=== PATIENT | female | born 1945 | race Caucasian/White ===

== ENCOUNTER 2019-12-10 11:21 | Observation (INO) ==
[2019-12-10 11:56] LABS: INR 1.1
[2019-12-10 11:57] LABS: Basophils % 0.5 %; Hematocrit 37.5 % (35.3-44.9); Hemoglobin 11.5 g/dL (11.5-15.4); Lymphocytes % 12.8 %; Mean Corpuscular HGB Conc 30.7 g/dL (31.6-35.5); Segmented Neutrophils % 75.4 %
[2019-12-10 11:59] LABS: Activated Partial Thrombo Time 32.1 Seconds (26.0-36.0); Basophils # 0.1 K/mcL (0.0-0.2); Eosinophils # 0.4 K/mcL (0.0-0.6); Eosinophils % 2.9 %; Immature Granulocytes % 0.3 % (0-4); Immature Platelets 6.4 % (1.1-6.1); Lymphocytes # 1.7 K/mcL (0.6-4.6); Mean Corpuscular Hemoglobin 29.6 pg (28.0-33.3); Mean Corpuscular Volume 96.6 fL (83.0-100.0); Mean Platelet Volume 10.9 fL (9.4-12.4); Monocytes # 1.1 K/mcL (0.0-1.3); Monocytes % 8.1 %; Platelet Count 378 K/mcL (140-400); Red Blood Count 3.88 M/mcL (3.82-4.97); Red Cell Distribution Width 13.7 % (11.5-14.5); White Blood Count 13.2 K/mcL (4.3-11.1)
[2019-12-10] MEDS ORDERED: Furosemide 40 MG/4 ML VIAL IVP ONE (14:17)
[2019-12-10 15:03] LABS: BUN/Creatinine Ratio 14 (6-26); Blood Urea Nitrogen 18 mg/dL (8-23); Calcium 9.7 mg/dL (8.6-10.3); Carbon Dioxide 23 mEq/L (23-29); Chloride 103 mEq/L (98-107); Glucose 130 mg/dL (70-105); Lipase 40 Units/L (11-82); Magnesium 1.8 mg/dL (1.6-2.6); Osmolality,Calculated 290 (280-300); Potassium 4.6 mEq/L (3.5-5.1); Sodium 138 mEq/L (136-145); Thyroid Stimulating Hormone 1.418 mcIU/mL (0.340-5.600); Troponin I < 0.03 ng/mL (< 0.04); eGFR For African Americans 50 (> 60); eGFR For Non-African Americans 42 (> 60)
[2019-12-10] MEDS ORDERED: Naloxone 0.4 MG/ML INJ IVP PRN (15:18)
[2019-12-10] MEDS ORDERED: Ondansetron 4 MG/2 ML VIAL IVP PRN (15:18)
[2019-12-10] MEDS ORDERED: Heparin 25,000UNIT/250ML 1/2NS 25,000 UNIT/250 ML IV.SOLN IVC SCH (15:45)
[2019-12-10] MEDS ORDERED: *HR* Heparin 5,000 UNIT/ML VIAL IVP ONE (15:45)
[2019-12-10] MEDS ORDERED: *HR* Heparin 5,000 UNIT/ML VIAL IVP PRN ×2 (15:45)
[2019-12-10] MEDS ORDERED: Dextrose Gel 15 GM/37.5 ML TUBE PO PRN ×2 (15:56)
[2019-12-10] MEDS ORDERED: D5% in Water 1,000 ML IVC PRN (15:56)
[2019-12-10] MEDS ORDERED: *HR* Dextrose 50 % in Water (Vial) 50 ML VIAL IVP PRN (15:56)
[2019-12-10 17:32] LABS: Adenovirus Not Detected (Not Detect); Bordetella Pertussis Not Detected (Not Detect); Chlamydophila pneumoniae Not Detected (Not Detect); Coronavirus 229E Not Detected (Not Detect); Coronavirus HKU1 Not Detected (Not Detect); Coronavirus NL63 Not Detected (Not Detect); Coronavirus OC43 Not Detected (Not Detect); Human Metapneumovirus Not Detected (Not Detect); Human Rhinovirus/Enterovirus Not Detected (Not Detect); Influenza A Subtype 2009 H1 Not Detected (Not Detect); Influenza B Not Detected (Not Detect); Mycoplasma pneumoniae Not Detected (Not Detect); Parainfluenza Virus 1 Not Detected (Not Detect); Parainfluenza Virus 2 Not Detected (Not Detect); Parainfluenza Virus 3 Not Detected (Not Detect); Parainfluenza Virus 4 Not Detected (Not Detect); Respiratory Syncytial Virus Not Detected (Not Detect); SARS-CoV-2 Not Detected (Not Detect)
[2019-12-10] MEDS: Ipratropium/Albuterol Neb 3 ML IH SCH ×2 (17:33→20:05)
[2019-12-10] MEDS: *HR* Labetalol 20 MG/4 ML SYRINGE IVP PRN (18:35)
[2019-12-10] MEDS: Insulin LISPRO 300 UNITS/3 ML VIAL SQ SCH (18:36)
[2019-12-10] MEDS ORDERED: Furosemide 40 MG/4 ML VIAL IVP SCH (21:00)
[2019-12-10] MEDS ORDERED: Insulin LISPRO 300 UNITS/3 ML VIAL SQ SCH (21:00)
[2019-12-11] MEDS: Ipratropium/Albuterol Neb 3 ML IH SCH ×3 (00:30→07:14)
[2019-12-11 01:03] LABS: Basophils # 0.1 K/mcL (0.0-0.2); Basophils % 0.6 %; Eosinophils # 0.4 K/mcL (0.0-0.6); Eosinophils % 2.5 %; Hematocrit 37.8 % (35.3-44.9); Hemoglobin 11.7 g/dL (11.5-15.4); Immature Granulocytes % 0.4 % (0-4); Lymphocytes % 13.8 %; Mean Corpuscular Hemoglobin 30.5 pg (28.0-33.3); Mean Corpuscular Volume 98.7 fL (83.0-100.0); Mean Platelet Volume 11.3 fL (9.4-12.4); Monocytes # 1.4 K/mcL (0.0-1.3); Monocytes % 9.3 %; Neutrophils # 10.7 K/mcL (1.6-8.9); Platelet Count 297 K/mcL (140-400); Red Blood Count 3.83 M/mcL (3.82-4.97); Red Cell Distribution Width 13.5 % (11.5-14.5); Segmented Neutrophils % 73.4 %; White Blood Count 14.6 K/mcL (4.3-11.1)
[2019-12-11 01:19] LABS: Calcium 9.7 mg/dL (8.6-10.3); Magnesium 1.9 mg/dL (1.6-2.6); Potassium 4.3 mEq/L (3.5-5.1)
[2019-12-11 01:21] LABS: Chol/HDL Ratio 2.4 (0-4.9)
[2019-12-11 06:44] VITALS: BP 182/96
[2019-12-11] MEDS: *HR* Labetalol 20 MG/4 ML SYRINGE IVP PRN (06:49)
[2019-12-11] MEDS: Insulin LISPRO 300 UNITS/3 ML VIAL SQ SCH (07:20)
[2019-12-11] MEDS ORDERED: lisinopriL 20 MG TABLET PO SCH (09:00)
[2019-12-11] MEDS ORDERED: Aspirin Enteric Coated 81 MG Tablet PO SCH (09:00)
[2019-12-11] MEDS ORDERED: Cyanocobalamin (B-12) 1,000 MCG TABLET PO SCH (09:00)
[2019-12-11 11:06] LABS: Estimated Average Glucose 171 mg/dl
== END 2019-12-11 09:17 | disposition left against medical advice (07) ==
LOC: 2ANU 11:21 → EMEROOARM 11:21 → SUATTDRO 15:58 → 2ANU 18:00
PROVIDERS: ADMIT Student in an Organized Health Care Education/Training Program; ATTEND Internal Medicine

== ENCOUNTER 2019-12-31 05:02 | Observation (INO) ==
[2019-12-31] MEDS ORDERED: MOM Conc 10 ML UD.LIQ PO PRN (07:45)
[2019-12-31] MEDS ORDERED: *HR* HYDROcodone/Acet 5/325 mg TABLET PO PRN (07:45)
[2019-12-31] MEDS ORDERED: Naloxone 0.4 MG/ML INJ IVP PRN (07:45)
[2019-12-31] MEDS ORDERED: Acetaminophen 325 MG TABLET PO PRN (07:45)
[2019-12-31] MEDS ORDERED: Ondansetron 4 MG/2 ML VIAL IVP PRN (07:45)
[2019-12-31] MEDS ORDERED: *HR* Promethazine 25 MG/ML VIAL IVP PRN (07:45)
[2019-12-31] MEDS ORDERED: Mag Hydrox/Al Hydrox/Simeth 30 ML UDC PO PRN (07:45)
[2019-12-31] MEDS ORDERED: D5% in Water 1,000 ML IVC PRN (07:50)
[2019-12-31] MEDS ORDERED: *HR* Dextrose 50 % in Water (Vial) 50 ML VIAL IVP PRN (07:50)
[2019-12-31] MEDS ORDERED: Dextrose Gel 15 GM/37.5 ML TUBE PO PRN ×2 (07:50)
[2019-12-31] MEDS ORDERED: Perflutren Lipid Microsphere 1.3 ML in 0.9 % Sodium Chloride 8.7 ML IVP PRN (09:37)
[2019-12-31] MEDS: Furosemide 20 MG/2 ML VIAL IVP SCH ×2 (09:56→20:25)
[2019-12-31] MEDS: Insulin LISPRO 300 UNITS/3 ML VIAL SQ SCH ×2 (12:21→16:31)
[2019-12-31] MEDS: lisinopriL 20 MG TABLET PO SCH (12:21)
[2019-12-31] MEDS ORDERED: Ipratropium/Albuterol Neb 3 ML IH PRN (15:10)
[2019-12-31] MEDS: Apixaban 5 MG TABLET PO SCH (20:25)
[2019-12-31] MEDS ORDERED: Insulin LISPRO 300 UNITS/3 ML VIAL SQ SCH (21:00)
[2020-01-01 05:29] LABS: Basophils # 0.1 K/mcL (0.0-0.2); Basophils % 0.7 %; Eosinophils # 0.3 K/mcL (0.0-0.6); Eosinophils % 2.8 %; Immature Granulocytes % 0.4 % (0-4); Lymphocytes # 1.8 K/mcL (0.6-4.6); Lymphocytes % 15.6 %; Mean Corpuscular HGB Conc 30.3 g/dL (31.6-35.5); Mean Corpuscular Hemoglobin 28.7 pg (28.0-33.3); Mean Corpuscular Volume 94.8 fL (83.0-100.0); Mean Platelet Volume 10.3 fL (9.4-12.4); Monocytes # 1.2 K/mcL (0.0-1.3); Neutrophils # 8.1 K/mcL (1.6-8.9); Platelet Count 365 K/mcL (140-400); Red Blood Count 3.48 M/mcL (3.82-4.97); Red Cell Distribution Width 13.6 % (11.5-14.5); Segmented Neutrophils % 70.5 %; White Blood Count 11.5 K/mcL (4.3-11.1)
[2020-01-01 05:46] LABS: Calcium 9.9 mg/dL (8.6-10.3); Magnesium 1.7 mg/dL (1.6-2.6); Phosphorous 3.7 mg/dL (2.7-4.5); Potassium 3.9 mEq/L (3.5-5.1)
[2020-01-01] MEDS: Insulin LISPRO 300 UNITS/3 ML VIAL SQ SCH ×2 (07:37→11:27)
[2020-01-01] MEDS: Apixaban 5 MG TABLET PO SCH (07:47)
[2020-01-01] MEDS: lisinopriL 20 MG TABLET PO SCH (07:47)
[2020-01-01] MEDS: Furosemide 20 MG/2 ML VIAL IVP SCH (07:48)
[2020-01-01] MEDS ORDERED: Aspirin Enteric Coated 81 MG Tablet PO SCH (09:00)
[2020-01-01] MEDS ORDERED: Cyanocobalamin (B-12) 1,000 MCG TABLET PO SCH (09:00)
[2020-01-01 11:03] VITALS: BP 181/66
[2020-01-01] MEDS ORDERED: carvediloL 6.25 MG TABLET PO SCH (17:00)
[2020-01-02] MEDS ORDERED: Furosemide 40 MG TABLET PO SCH (09:00)
== END 2020-01-01 12:45 | disposition home or self-care (01) ==
LOC: CDU → SUATTDRO 08:47 → 3ANU 17:26
PROVIDERS: ADMIT Internal Medicine; ATTEND Family Medicine

== ENCOUNTER 2020-03-13 08:20 | Inpatient (IN) ==
[2020-03-13] MEDS ORDERED: Furosemide 80 MG in 0.9 % Sodium Chloride 50 ML IVPB ONE (08:45)
[2020-03-13] MEDS ORDERED: *HR* FentaNYL (PF) 100 MCG/2 ML VIAL IVP ONE (08:47)
[2020-03-13] MEDS ORDERED: Ondansetron 4 MG/2 ML VIAL IVP ONE (08:47)
[2020-03-13] MEDS ORDERED: Furosemide 40 MG/4 ML VIAL IVP ONE (08:52)
[2020-03-13 09:17] LABS: INR 1.7; Prothrombin Time 19.2 Seconds (9.4-12.1)
[2020-03-13 09:19] LABS: Activated Partial Thrombo Time 33.2 Seconds (26.0-36.0)
[2020-03-13 09:26] LABS: Hemoglobin 6.8 g/dL (11.5-15.4); Mean Platelet Volume 10.5 fL (9.4-12.4); Monocytes % 12.8 %; Red Cell Distribution Width 16.2 % (11.5-14.5)
[2020-03-13 09:28] LABS: Basophils # 0.1 K/mcL (0.0-0.2); Eosinophils # 0.4 K/mcL (0.0-0.6); Eosinophils % 3.5 %; Hematocrit 23.4 % (35.3-44.9); Immature Granulocytes % 0.4 % (0-4); Lymphocytes # 1.6 K/mcL (0.6-4.6); Lymphocytes % 14.7 %; Mean Corpuscular HGB Conc 29.1 g/dL (31.6-35.5); Mean Corpuscular Hemoglobin 24.8 pg (28.0-33.3); Mean Corpuscular Volume 85.4 fL (83.0-100.0); Monocytes # 1.4 K/mcL (0.0-1.3); Platelet Count 466 K/mcL (140-400); Red Blood Count 2.74 M/mcL (3.82-4.97); Segmented Neutrophils % 67.6 %; White Blood Count 10.7 K/mcL (4.3-11.1)
[2020-03-13 09:32] LABS: Alanine Aminotransferase 8 Units/L (7-52); Albumin 3.9 g/dL (3.5-5.7); Albumin/Globulin Ratio 1.2 (1.1-2.2); Alkaline Phosphatase 83 Units/L (34-104); Aspartate Amino Transferase 13 Units/L (13-39); BUN/Creatinine Ratio 21 (6-26); Bilirubin,Direct 0.2 mg/dL (0.0-0.2); Bilirubin,Indirect 0.4 mg/dL (0.0-1.0); Bilirubin,Total 0.6 mg/dL (0.3-1.0); Blood Urea Nitrogen 40 mg/dL (8-23); Calcium 9.4 mg/dL (8.6-10.3); Carbon Dioxide 23 mEq/L (23-29); Chloride 103 mEq/L (98-107); Globulin 3.2 g/dL (2.4-3.5); Glucose 148 mg/dL (70-105); Lipase 88 Units/L (11-82); Osmolality,Calculated 295 (280-300); Potassium 5.3 mEq/L (3.5-5.1); Sodium 136 mEq/L (136-145); Total Protein 7.1 g/dL (6.4-8.9); Troponin I < 0.03 ng/mL (< 0.04); eGFR For African Americans 32 (> 60); eGFR For Non-African Americans 26 (> 60)
[2020-03-13 09:53] LABS: Neutrophils # 7.2 K/mcL (1.6-8.9)
[2020-03-13 10:01] LABS: Bilirubin,Urine Negative (Negative); Blood,Urine Negative (Negative); Clarity,Urine Turbid (Clear); Color,Urine Light-Yellow (Yellow); Glucose,Urine (UA) Normal (Normal); Hyaline Casts,Urine Few per lpf (None Seen); Ketones,Urine Negative (Negative); Leukocyte Esterase,Urine Large (Negative); Mucus,Urine Few per lpf (None-Few); Nitrite,Urine Negative (Negative); Protein,Urine 30 mg/dL (Neg-Trace); RBC,Urine 0-3 per hpf (0-3); Specific Gravity,Urine 1.022 (1.010-1.025); Squamous Epithelial Cell,Urine Moderate per hpf (None-Few); Urobilinogen,Urine Normal (Normal)
[2020-03-13] MEDS ORDERED: Piperacillin/Tazobactam 3.375 GM in 0.9 % Sodium Chloride Mini Bag 100 ML IVPB ONE (10:20)
[2020-03-13] MEDS ORDERED: Insulin Human Regular 10 UNIT in 0.9 % Sodium Chloride 10 ML IV ONE (11:16)
[2020-03-13] MEDS ORDERED: *HR* Dextrose 50 % in Water (Vial) 50 ML VIAL IVP ONE (11:16)
[2020-03-13] MEDS ORDERED: Ondansetron 4 MG/2 ML VIAL IVP PRN (11:18)
[2020-03-13] MEDS ORDERED: Naloxone 0.4 MG/ML INJ IVP PRN (11:18)
[2020-03-13] MEDS ORDERED: *HR* Metoprolol 5 MG/5 ML VIAL IVP PRN (11:21)
[2020-03-13] MEDS ORDERED: D5% in Water 1,000 ML IVC PRN (11:24)
[2020-03-13] MEDS ORDERED: Dextrose Gel 15 GM/37.5 ML TUBE PO PRN ×2 (11:24)
[2020-03-13] MEDS ORDERED: *HR* Dextrose 50 % in Water (Vial) 50 ML VIAL IVP PRN (11:24)
[2020-03-13 12:07] LABS: Estimated Average Glucose 186 mg/dl; Hemoglobin A1C 8.1 %
[2020-03-13] MEDS ORDERED: Ipratropium/Albuterol Neb 3 ML IH PRN (12:31)
[2020-03-13] MEDS ORDERED: 0.9 % Sodium Chloride 250 ML ONE (13:06)
[2020-03-13] MEDS: Insulin LISPRO 300 UNITS/3 ML VIAL SUBQ SCH ×3 (13:11→21:08)
[2020-03-13] MEDS: carvediloL 6.25 MG TABLET PO SCH (16:50)
[2020-03-13] MEDS: Pantoprazole 40 MG VIAL IVP SCH (16:50)
[2020-03-13 17:17] LABS: Creatinine,Urine 104 mg/dL
[2020-03-13] MEDS ORDERED: Furosemide 40 MG/4 ML VIAL IVP SCH (21:00)
[2020-03-14] MEDS: Pantoprazole 40 MG VIAL IVP SCH ×2 (05:09→18:13)
[2020-03-14 07:00] LABS: Calcium 9.5 mg/dL (8.6-10.3); Magnesium 2.1 mg/dL (1.6-2.6); Phosphorous 4.4 mg/dL (2.7-4.5); Potassium 4.9 mEq/L (3.5-5.1)
[2020-03-14] MEDS: Insulin LISPRO 300 UNITS/3 ML VIAL SUBQ SCH ×4 (08:48→20:47)
[2020-03-14] MEDS: carvediloL 6.25 MG TABLET PO SCH ×2 (08:49→18:13)
[2020-03-14 16:18] LABS: Hematocrit 25.7 % (35.3-44.9); Hemoglobin 7.8 g/dL (11.5-15.4)
[2020-03-15] MEDS: Pantoprazole 40 MG VIAL IVP SCH ×2 (05:31→18:24)
[2020-03-15 06:01] LABS: Hematocrit 24.4 % (35.3-44.9); Hemoglobin 7.1 g/dL (11.5-15.4); Mean Corpuscular HGB Conc 29.1 g/dL (31.6-35.5); Mean Corpuscular Hemoglobin 24.4 pg (28.0-33.3); Mean Corpuscular Volume 83.8 fL (83.0-100.0); Mean Platelet Volume 10.1 fL (9.4-12.4); Platelet Count 360 K/mcL (140-400); Red Blood Count 2.91 M/mcL (3.82-4.97); White Blood Count 10.7 K/mcL (4.3-11.1)
[2020-03-15 06:23] LABS: Calcium 9.2 mg/dL (8.6-10.3); Magnesium 2.1 mg/dL (1.6-2.6); Potassium 4.9 mEq/L (3.5-5.1)
[2020-03-15] MEDS: carvediloL 6.25 MG TABLET PO SCH ×2 (07:56→18:24)
[2020-03-15] MEDS: Insulin LISPRO 300 UNITS/3 ML VIAL SUBQ SCH ×4 (07:57→20:00)
[2020-03-15] MEDS ORDERED: 0.9 % Sodium Chloride 250 ML IVC SCH (08:00)
[2020-03-15] MEDS ORDERED: lisinopriL 20 MG TABLET PO SCH (09:00)
[2020-03-16] MEDS: Pantoprazole 40 MG VIAL IVP SCH ×2 (05:16→18:07)
[2020-03-16 07:40] LABS: Hematocrit 31.2 % (35.3-44.9); Mean Corpuscular HGB Conc 30.1 g/dL (31.6-35.5); Mean Corpuscular Hemoglobin 25.9 pg (28.0-33.3); Platelet Count 352 K/mcL (140-400); Red Blood Count 3.63 M/mcL (3.82-4.97); Red Cell Distribution Width 15.9 % (11.5-14.5); White Blood Count 9.7 K/mcL (4.3-11.1)
[2020-03-16 07:42] LABS: Hemoglobin 9.4 g/dL (11.5-15.4)
[2020-03-16 07:58] LABS: Basophils # 0.1 K/mcL (0.0-0.2); Basophils % 0.5 %; Calcium 9.3 mg/dL (8.6-10.3); Eosinophils # 0.4 K/mcL (0.0-0.6); Immature Granulocytes % 0.3 % (0-4); Lymphocytes # 1.4 K/mcL (0.6-4.6); Lymphocytes % 14.1 %; Monocytes # 1.3 K/mcL (0.0-1.3); Monocytes % 13.5 %; Neutrophils # 6.6 K/mcL (1.6-8.9); Potassium 4.7 mEq/L (3.5-5.1); Segmented Neutrophils % 67.6 %
[2020-03-16] MEDS: Insulin LISPRO 300 UNITS/3 ML VIAL SUBQ SCH ×4 (10:04→19:41)
[2020-03-16] MEDS: carvediloL 6.25 MG TABLET PO SCH ×2 (10:04→18:08)
[2020-03-16] MEDS ORDERED: SODIUM CHLORIDE/NAHCO3/KCL/PEG 4,000 ML SOLN.RECON PO ONE (18:26)
[2020-03-17] MEDS: Pantoprazole 40 MG VIAL IVP SCH ×2 (05:11→18:50)
[2020-03-17 07:05] LABS: Basophils # 0.1 K/mcL (0.0-0.2); Basophils % 0.6 %; Eosinophils # 0.4 K/mcL (0.0-0.6); Hematocrit 30.7 % (35.3-44.9); Hemoglobin 9.3 g/dL (11.5-15.4); Immature Granulocytes % 0.4 % (0-4); Lymphocytes # 1.3 K/mcL (0.6-4.6); Lymphocytes % 11.8 %; Mean Corpuscular HGB Conc 30.3 g/dL (31.6-35.5); Mean Corpuscular Hemoglobin 26.4 pg (28.0-33.3); Mean Corpuscular Volume 87.2 fL (83.0-100.0); Mean Platelet Volume 10.2 fL (9.4-12.4); Monocytes # 1.3 K/mcL (0.0-1.3); Monocytes % 11.5 %; Neutrophils # 7.8 K/mcL (1.6-8.9); Platelet Count 330 K/mcL (140-400); Red Blood Count 3.52 M/mcL (3.82-4.97); Red Cell Distribution Width 16.5 % (11.5-14.5); Segmented Neutrophils % 71.7 %; White Blood Count 10.9 K/mcL (4.3-11.1)
[2020-03-17 07:23] LABS: Potassium 4.5 mEq/L (3.5-5.1)
[2020-03-17] MEDS: Insulin LISPRO 300 UNITS/3 ML VIAL SUBQ SCH ×4 (08:14→21:17)
[2020-03-17] MEDS: carvediloL 6.25 MG TABLET PO SCH ×2 (08:36→17:19)
[2020-03-17] MEDS ORDERED: Lidocaine -MPF 2% 2 ML VIAL ONE (13:57)
[2020-03-17] MEDS ORDERED: *HR* Propofol 200 MG/20 ML VIAL IVP ONE (13:57)
[2020-03-17 15:41] LABS: Bacteria,Urine Few per hpf (None-Few); Bilirubin,Urine Negative (Negative); Blood,Urine Large (Negative); Clarity,Urine Clear (Clear); Color,Urine Light-Yellow (Yellow); Glucose,Urine (UA) Normal (Normal); Ketones,Urine Negative (Negative); Leukocyte Esterase,Urine Moderate (Negative); Mucus,Urine Few per lpf (None-Few); Nitrite,Urine Negative (Negative); Protein,Urine 30 mg/dL (Neg-Trace); RBC,Urine 50-100 per hpf (0-3); Specific Gravity,Urine 1.009 (1.010-1.025); Squamous Epithelial Cell,Urine Few per hpf (None-Few); Urobilinogen,Urine Normal (Normal)
[2020-03-17] MEDS: Apixaban 5 MG TABLET PO SCH (21:17)
[2020-03-18] MEDS: Pantoprazole 40 MG VIAL IVP SCH (05:35)
[2020-03-18 07:20] LABS: Basophils # 0.1 K/mcL (0.0-0.2); Basophils % 0.4 %; Eosinophils # 0.4 K/mcL (0.0-0.6); Eosinophils % 3.6 %; Hematocrit 31.9 % (35.3-44.9); Hemoglobin 9.5 g/dL (11.5-15.4); Immature Granulocytes % 0.3 % (0-4); Lymphocytes # 1.4 K/mcL (0.6-4.6); Lymphocytes % 11.5 %; Mean Corpuscular HGB Conc 29.8 g/dL (31.6-35.5); Mean Corpuscular Hemoglobin 26.2 pg (28.0-33.3); Mean Corpuscular Volume 87.9 fL (83.0-100.0); Mean Platelet Volume 10.3 fL (9.4-12.4); Monocytes # 1.5 K/mcL (0.0-1.3); Monocytes % 12.1 %; Neutrophils # 8.8 K/mcL (1.6-8.9); Platelet Count 372 K/mcL (140-400); Red Blood Count 3.63 M/mcL (3.82-4.97); Red Cell Distribution Width 16.7 % (11.5-14.5); Segmented Neutrophils % 72.1 %; White Blood Count 12.2 K/mcL (4.3-11.1)
[2020-03-18 07:39] LABS: Calcium 9.4 mg/dL (8.6-10.3); Potassium 4.4 mEq/L (3.5-5.1)
[2020-03-18] MEDS: carvediloL 6.25 MG TABLET PO SCH (08:51)
[2020-03-18] MEDS: Apixaban 5 MG TABLET PO SCH (08:51)
[2020-03-18] MEDS: Insulin LISPRO 300 UNITS/3 ML VIAL SUBQ SCH ×2 (08:52→11:38)
[2020-03-18 08:58] VITALS: BP 155/92
[2020-03-18] MEDS ORDERED: cefTRIAXone 1,000 MG in Water for inj. (sterile) 10 ML IVP SCH (09:00)
[2020-03-18] MEDS ORDERED: Furosemide 40 MG/4 ML VIAL IVP ONE (11:28)
== END 2020-03-18 13:15 | disposition home or self-care (01) | DRG 682 ==
LOC: EMEROOARM 08:20 → CDU 08:20 → SUATTDRO 11:56 → CDU 12:15
PROVIDERS: ADMIT Student in an Organized Health Care Education/Training Program; ATTEND Internal Medicine
PROC: ENDOCBX (2020-03-17 13:55)
PROC: ENDOEBX (2020-03-17 13:55)

== ENCOUNTER 2021-01-05 20:54 | Observation (INO) ==
[2021-01-05] MEDS ORDERED: Melatonin 3 MG TABLET PO PRN (22:51)
[2021-01-05] MEDS ORDERED: Naloxone 0.4 MG/ML INJ IVP PRN (22:51)
[2021-01-05] MEDS ORDERED: D5% in Water 1,000 ML IVC PRN (23:26)
[2021-01-05] MEDS ORDERED: Dextrose Gel 15 GM/37.5 ML TUBE PO PRN ×2 (23:26)
[2021-01-05] MEDS ORDERED: *HR* Dextrose 50 % in Water (Syg) 50 ML SYRINGE IVP PRN (23:26)
[2021-01-06 05:00] LABS: Hematocrit 28.7 % (35.3-44.9); Hemoglobin 8.3 g/dL (11.5-15.4); Mean Corpuscular HGB Conc 28.9 g/dL (31.6-35.5); Mean Corpuscular Hemoglobin 24.2 pg (28.0-33.3); Mean Corpuscular Volume 83.7 fL (83.0-100.0); Mean Platelet Volume 10.3 fL (9.4-12.4); Platelet Count 446 K/mcL (140-400); Red Blood Count 3.43 M/mcL (3.82-4.97); Red Cell Distribution Width 15.7 % (11.5-14.5); White Blood Count 10.3 K/mcL (4.3-11.1)
[2021-01-06 05:18] LABS: Calcium 9.7 mg/dL (8.6-10.3); Magnesium 2.1 mg/dL (1.6-2.6); Potassium 4.7 mEq/L (3.5-5.1)
[2021-01-06 05:21] LABS: % Iron Saturation 3 % (15-50); Iron 14 mcg/dL (50-170); Transferrin 325 mg/dL (203-362)
[2021-01-06 05:38] LABS: Ferritin 11 ng/mL (10-120)
[2021-01-06 05:43] LABS: Folate 10.7 ng/mL (3.0-16.0)
[2021-01-06] MEDS: Furosemide 40 MG TABLET PO SCH (07:38)
[2021-01-06] MEDS ORDERED: amLODIPine 5 MG TABLET PO SCH (09:15)
[2021-01-06] MEDS ORDERED: Furosemide 40 MG/4 ML VIAL IVP ONE (10:51)
[2021-01-06] MEDS: Insulin LISPRO 300 UNITS/3 ML VIAL SUBQ SCH ×4 (10:54→21:32)
[2021-01-06] MEDS ORDERED: Perflutren Lipid Microsphere 1.3 ML in 0.9 % Sodium Chloride 8.7 ML IVP PRN (11:02)
[2021-01-06] MEDS: Isosorbide MONOnitrate (24 HR) 30 MG TAB.ER.24H PO SCH (12:27)
[2021-01-06] MEDS ORDERED: lisinopriL 20 MG TABLET PO SCH (13:30)
[2021-01-06] MEDS: Apixaban 5 MG TABLET PO SCH (20:03)
[2021-01-07 01:25] LABS: Hematocrit 27.6 % (35.3-44.9); Hemoglobin 8.2 g/dL (11.5-15.4); Mean Corpuscular HGB Conc 29.7 g/dL (31.6-35.5); Mean Corpuscular Hemoglobin 24.8 pg (28.0-33.3); Mean Corpuscular Volume 83.4 fL (83.0-100.0); Mean Platelet Volume 10.4 fL (9.4-12.4); Platelet Count 426 K/mcL (140-400); Red Blood Count 3.31 M/mcL (3.82-4.97); Red Cell Distribution Width 15.5 % (11.5-14.5)
[2021-01-07 01:46] LABS: Calcium 9.3 mg/dL (8.6-10.3); Potassium 4.2 mEq/L (3.5-5.1)
[2021-01-07] MEDS: Furosemide 40 MG TABLET PO SCH (08:09)
[2021-01-07] MEDS: Isosorbide MONOnitrate (24 HR) 30 MG TAB.ER.24H PO SCH (08:09)
[2021-01-07] MEDS: Apixaban 5 MG TABLET PO SCH ×2 (08:09→20:10)
[2021-01-07] MEDS: Cyanocobalamin (B-12) 1,000 MCG TABLET PO SCH (08:09)
[2021-01-07] MEDS: Insulin LISPRO 300 UNITS/3 ML VIAL SUBQ SCH ×4 (08:10→20:10)
[2021-01-07] MEDS ORDERED: Furosemide 20 MG/2 ML VIAL IVP ONE (08:31)
[2021-01-07 13:58] LABS: Estimated Average Glucose 160 mg/dl; Hemoglobin A1C 7.2 %
[2021-01-07] MEDS: hydrALAZINE 25 MG TABLET PO SCH ×2 (16:29→23:36)
[2021-01-07] MEDS: Acetaminophen 325 MG TABLET PO PRN (16:30)
[2021-01-08 03:22] LABS: Hematocrit 26.6 % (35.3-44.9); Hemoglobin 7.9 g/dL (11.5-15.4); Mean Corpuscular HGB Conc 29.7 g/dL (31.6-35.5); Mean Corpuscular Hemoglobin 24.4 pg (28.0-33.3); Mean Corpuscular Volume 82.1 fL (83.0-100.0); Mean Platelet Volume 10.2 fL (9.4-12.4); Platelet Count 399 K/mcL (140-400); Red Blood Count 3.24 M/mcL (3.82-4.97); Red Cell Distribution Width 15.6 % (11.5-14.5); White Blood Count 10.3 K/mcL (4.3-11.1)
[2021-01-08 03:33] LABS: Calcium 9.2 mg/dL (8.6-10.3); Potassium 3.8 mEq/L (3.5-5.1)
[2021-01-08] MEDS: hydrALAZINE 25 MG TABLET PO SCH (06:46)
[2021-01-08] MEDS: Insulin LISPRO 300 UNITS/3 ML VIAL SUBQ SCH ×2 (07:29→12:40)
[2021-01-08] MEDS: Apixaban 5 MG TABLET PO SCH (07:39)
[2021-01-08] MEDS: Isosorbide MONOnitrate (24 HR) 30 MG TAB.ER.24H PO SCH (07:39)
[2021-01-08] MEDS: Furosemide 40 MG TABLET PO SCH (07:39)
[2021-01-08] MEDS: Cyanocobalamin (B-12) 1,000 MCG TABLET PO SCH (07:40)
[2021-01-08] MEDS: Acetaminophen 325 MG TABLET PO PRN (07:46)
[2021-01-08 10:19] VITALS: BP 137/65; PULSE 66; TEMP 97.7; O2SAT 94
[2021-01-08 12:14] LABS: Hematocrit 25.1 % (35.3-44.9); Hemoglobin 7.6 g/dL (11.5-15.4)
[2021-01-08] MEDS ORDERED: hydrALAZINE 25 MG TABLET PO SCH (16:00)
== END 2021-01-08 13:54 | disposition home or self-care (01) ==
LOC: 3BNU → SUATTDRO 22:04
PROVIDERS: ADMIT Family Medicine; ATTEND Registered Nurse

== ENCOUNTER 2021-01-31 14:46 | Inpatient (IN) ==
[2021-01-31 18:20] LABS: Basophils % 0.8 %; Hemoglobin 6.2 g/dL (11.5-15.4); Immature Granulocytes % 0.4 % (0-4); Mean Platelet Volume 10.3 fL (9.4-12.4); Nucleated Red Blood Cells 0.2 /100 WBC (0); Red Cell Distribution Width 19.4 % (11.5-14.5)
[2021-01-31] MEDS ORDERED: Isovue-370 500 ML BOTTLE IVP ONE (18:20)
[2021-01-31 18:21] LABS: Basophils # 0.1 K/mcL (0.0-0.2); White Blood Count 13.8 K/mcL (4.3-11.1)
[2021-01-31 18:22] LABS: Eosinophils # 0.3 K/mcL (0.0-0.6); Eosinophils % 2.2 %; Hematocrit 21.1 % (35.3-44.9); Lymphocytes % 14.3 %; Mean Corpuscular HGB Conc 29.4 g/dL (31.6-35.5); Mean Corpuscular Hemoglobin 24.9 pg (28.0-33.3); Mean Corpuscular Volume 84.7 fL (83.0-100.0); Monocytes # 1.9 K/mcL (0.0-1.3); Monocytes % 13.8 %; Neutrophils # 9.5 K/mcL (1.6-8.9); Platelet Count 502 K/mcL (140-400); Red Blood Count 2.49 M/mcL (3.82-4.97); Segmented Neutrophils % 68.5 %
[2021-01-31 18:27] LABS: INR 2.1; Prothrombin Time 23.5 Seconds (9.4-12.1)
[2021-01-31 18:39] LABS: Potassium 5.3 mEq/L (3.5-5.1)
[2021-01-31 18:40] LABS: Hypochromasia Present (Not Present); Macrocytosis Present (Not Present); Ovalocytes 1+ (Not Present); Polychromasia 1+ (Not Present)
[2021-01-31 18:41] LABS: Platelet Estimate Increased (Normal)
[2021-01-31] MEDS ORDERED: SODIUM ZIRCONIUM CYCLOSILICATE 5 GM POWD.PACK PO ONE (19:57)
[2021-01-31] MEDS ORDERED: Furosemide 40 MG/4 ML VIAL IVP ONE (19:57)
[2021-01-31] MEDS ORDERED: Naloxone 0.4 MG/ML INJ IVP PRN (21:18)
[2021-01-31] MEDS ORDERED: Ondansetron 4 MG/2 ML VIAL IVP PRN (21:18)
[2021-01-31] MEDS ORDERED: 0.9 % Sodium Chloride 250 ML ONE (21:52)
[2021-02-01] MEDS ORDERED: Ipratropium/Albuterol Neb 3 ML IH PRN (00:09)
[2021-02-01 00:23] LABS: Bilirubin,Urine Negative (Negative); Blood,Urine Negative (Negative); Clarity,Urine Clear (Clear); Color,Urine Colorless (Yellow); Glucose,Urine (UA) Normal (Normal); Ketones,Urine Negative (Negative); Leukocyte Esterase,Urine Negative (Negative); Nitrite,Urine Negative (Negative); PH,Urine 6.5 pH Units (5.0-8.0); Protein,Urine Negative (Neg-Trace); Specific Gravity,Urine 1.009 (1.010-1.025); Urobilinogen,Urine Normal (Normal)
[2021-02-01 03:09] LABS: Basophils # 0.2 K/mcL (0.0-0.2); Basophils % 1.1 %; Eosinophils # 0.3 K/mcL (0.0-0.6); Eosinophils % 1.9 %; Hematocrit 25.6 % (35.3-44.9); Hemoglobin 7.7 g/dL (11.5-15.4); Immature Granulocytes % 1.2 % (0-4); Lymphocytes # 1.2 K/mcL (0.6-4.6); Lymphocytes % 8.6 %; Mean Corpuscular HGB Conc 30.1 g/dL (31.6-35.5); Mean Corpuscular Hemoglobin 25.7 pg (28.0-33.3); Mean Corpuscular Volume 85.3 fL (83.0-100.0); Mean Platelet Volume 9.7 fL (9.4-12.4); Monocytes # 2.1 K/mcL (0.0-1.3); Monocytes % 15.5 %; Neutrophils # 9.5 K/mcL (1.6-8.9); Nucleated Red Blood Cells 0.8 /100 WBC (0); Platelet Count 494 K/mcL (140-400); Red Cell Distribution Width 18.3 % (11.5-14.5); Segmented Neutrophils % 71.7 %; White Blood Count 13.3 K/mcL (4.3-11.1)
[2021-02-01 03:15] LABS: INR 1.9; Prothrombin Time 21.4 Seconds (9.4-12.1)
[2021-02-01 03:29] LABS: Albumin 3.5 g/dL (3.5-5.7); Albumin/Globulin Ratio 1.1 (1.1-2.2); Bilirubin,Direct 1.3 mg/dL (0.0-0.2); Bilirubin,Indirect 1.8 mg/dL (0.0-1.0); Bilirubin,Total 3.1 mg/dL (0.3-1.0); Calcium 9.1 mg/dL (8.6-10.3); Globulin 3.1 g/dL (2.4-3.5); Potassium 4.6 mEq/L (3.5-5.1); Total Protein 6.6 g/dL (6.4-8.9)
[2021-02-01] MEDS: *HR* HYDROmorphone (PF) 1 MG/ML SYRINGE IVP PRN ×3 (05:08→14:57)
[2021-02-01 09:05] LABS: Basophils # 0.1 K/mcL (0.0-0.2); Basophils % 0.9 %; Eosinophils # 0.2 K/mcL (0.0-0.6); Eosinophils % 1.4 %; Hematocrit 26.3 % (35.3-44.9); Immature Granulocytes % 0.7 % (0-4); Lymphocytes # 1.1 K/mcL (0.6-4.6); Lymphocytes % 7.4 %; Mean Corpuscular HGB Conc 30.4 g/dL (31.6-35.5); Mean Corpuscular Hemoglobin 25.6 pg (28.0-33.3); Mean Corpuscular Volume 84.3 fL (83.0-100.0); Mean Platelet Volume 9.8 fL (9.4-12.4); Monocytes # 2.2 K/mcL (0.0-1.3); Monocytes % 14.6 %; Neutrophils # 11.2 K/mcL (1.6-8.9); Nucleated Red Blood Cells 0.7 /100 WBC (0); Platelet Count 517 K/mcL (140-400); Red Blood Count 3.12 M/mcL (3.82-4.97); Red Cell Distribution Width 18.5 % (11.5-14.5)
[2021-02-01] MEDS: hydrALAZINE 25 MG TABLET PO SCH ×2 (14:46→20:18)
[2021-02-01] MEDS ORDERED: lisinopriL 20 MG TABLET PO SCH (21:00)
[2021-02-02] MEDS: *HR* HYDROmorphone (PF) 1 MG/ML SYRINGE IVP PRN (02:53)
[2021-02-02 03:33] LABS: Basophils # 0.1 K/mcL (0.0-0.2); Basophils % 0.7 %; Eosinophils # 0.2 K/mcL (0.0-0.6); Eosinophils % 1.4 %; Hemoglobin 7.8 g/dL (11.5-15.4); Immature Granulocytes % 0.9 % (0-4); Lymphocytes # 1.2 K/mcL (0.6-4.6); Mean Corpuscular Hemoglobin 25.8 pg (28.0-33.3); Mean Corpuscular Volume 86.1 fL (83.0-100.0); Mean Platelet Volume 9.5 fL (9.4-12.4); Monocytes # 1.9 K/mcL (0.0-1.3); Monocytes % 12.9 %; Neutrophils # 11.2 K/mcL (1.6-8.9); Nucleated Red Blood Cells 0.5 /100 WBC (0); Platelet Count 490 K/mcL (140-400); Red Blood Count 3.02 M/mcL (3.82-4.97); Segmented Neutrophils % 76.1 %; White Blood Count 14.7 K/mcL (4.3-11.1)
[2021-02-02 03:50] LABS: Albumin 3.1 g/dL (3.5-5.7); Bilirubin,Total 2.5 mg/dL (0.3-1.0); Calcium 9.1 mg/dL (8.6-10.3); Globulin 3.1 g/dL (2.4-3.5); Potassium 4.4 mEq/L (3.5-5.1); Total Protein 6.2 g/dL (6.4-8.9)
[2021-02-02] MEDS: hydrALAZINE 25 MG TABLET PO SCH ×2 (05:15→13:44)
[2021-02-02 06:56] VITALS: O2SAT 96
[2021-02-02 07:40] VITALS: TEMP 98.5
[2021-02-02] MEDS ORDERED: Furosemide 20 MG/2 ML VIAL IVP ONE (11:23)
[2021-02-02 12:28] VITALS: BP 163/60; PULSE 79
== END 2021-02-02 15:24 | disposition home or self-care (01) | DRG 919 ==
LOC: 2NNU 14:46 → EMEROOARM 14:46 → OBSVTOIN 20:35 → 2NNU 21:10 → 3NENU 02-02 10:06
PROVIDERS: ADMIT Internal Medicine; ATTEND Internal Medicine

== ENCOUNTER 2021-05-29 14:53 | Inpatient (IN) ==
[2021-05-29] MEDS ORDERED: Ondansetron ODT 4 MG TAB.RAPDIS SL PRN (16:55)
[2021-05-29] MEDS ORDERED: Naloxone 0.4 MG/ML INJ IVP PRN (16:55)
[2021-05-29] MEDS ORDERED: Melatonin 3 MG TABLET PO PRN (16:55)
[2021-05-29] MEDS ORDERED: Dextrose 4 GM Chewable Tablets PO PRN ×2 (17:00)
[2021-05-29] MEDS ORDERED: *HR* Dextrose 50 % in Water (Syg) 50 ML SYRINGE IVP PRN (17:00)
[2021-05-29] MEDS ORDERED: D5% in Water 1,000 ML IVC PRN (17:00)
[2021-05-29 17:54] LABS: Bilirubin,Urine Negative (Negative); Blood,Urine Negative (Negative); Clarity,Urine Clear (Clear); Color,Urine Colorless (Yellow); Glucose,Urine (UA) Normal (Normal); Ketones,Urine Negative (Negative); Leukocyte Esterase,Urine Trace (Negative); Mucus,Urine Few per lpf (None-Few); Nitrite,Urine Negative (Negative); PH,Urine 6.5 pH Units (5.0-8.0); Protein,Urine Trace mg/dL (Neg-Trace); RBC,Urine 0-3 per hpf (0-3); Specific Gravity,Urine 1.009 (1.010-1.025); Urobilinogen,Urine Normal (Normal)
[2021-05-29] MEDS: Furosemide 40 MG/4 ML VIAL IVP SCH (18:00)
[2021-05-29] MEDS: Insulin LISPRO 300 UNITS/3 ML VIAL SUBQ SCH (21:00)
[2021-05-29] MEDS ORDERED: Furosemide 40 MG/4 ML VIAL IVP SCH (21:00)
[2021-05-29] MEDS: *HR* Heparin 5,000 UNIT/ML VIAL SQ SCH (21:14)
[2021-05-30 01:55] LABS: Calcium 9.1 mg/dL (8.6-10.3); Potassium 4.4 mEq/L (3.5-5.1)
[2021-05-30] MEDS: *HR* Heparin 5,000 UNIT/ML VIAL SQ SCH ×3 (05:57→21:00)
[2021-05-30] MEDS: Insulin LISPRO 300 UNITS/3 ML VIAL SUBQ SCH ×4 (07:11→20:36)
[2021-05-30] MEDS: Furosemide 40 MG/4 ML VIAL IVP SCH ×2 (08:16→15:50)
[2021-05-30] MEDS: Acetaminophen 325 MG TABLET PO PRN (12:02)
[2021-05-30] MEDS: allopurinoL 100 MG TABLET PO SCH (12:18)
[2021-05-31] MEDS: *HR* Heparin 5,000 UNIT/ML VIAL SQ SCH ×2 (05:14→13:32)
[2021-05-31 06:04] LABS: Calcium 9.8 mg/dL (8.6-10.3); Potassium 4.2 mEq/L (3.5-5.1)
[2021-05-31] MEDS: Insulin LISPRO 300 UNITS/3 ML VIAL SUBQ SCH ×4 (07:31→19:58)
[2021-05-31] MEDS: Furosemide 40 MG/4 ML VIAL IVP SCH ×2 (07:43→16:18)
[2021-05-31] MEDS: allopurinoL 100 MG TABLET PO SCH (07:43)
[2021-05-31] MEDS: Acetaminophen 325 MG TABLET PO PRN ×2 (09:00→18:08)
[2021-05-31] MEDS ORDERED: Apixaban 5 MG TABLET PO SCH (14:15)
[2021-05-31] MEDS: Apixaban 5 MG TABLET PO SCH (20:39)
[2021-06-01 01:43] LABS: Calcium 9.2 mg/dL (8.6-10.3); Potassium 4.2 mEq/L (3.5-5.1)
[2021-06-01] MEDS: Insulin LISPRO 300 UNITS/3 ML VIAL SUBQ SCH ×4 (07:55→22:04)
[2021-06-01] MEDS: Apixaban 5 MG TABLET PO SCH ×2 (07:56→21:10)
[2021-06-01] MEDS ORDERED: allopurinoL 100 MG TABLET PO SCH ×2 (09:00)
[2021-06-01] MEDS ORDERED: hydrOXYzine pamoate 25 MG CAPSULE PO PRN (09:57)
[2021-06-01 17:17] LABS: Potassium 4.2 mEq/L (3.5-5.1)
[2021-06-01] MEDS: Leptospermum Honey Gel 44 ML TUBE TP SCH (21:10)
[2021-06-02 02:35] LABS: Calcium 9.4 mg/dL (8.6-10.3); Potassium 4.3 mEq/L (3.5-5.1)
[2021-06-02] MEDS: Insulin LISPRO 300 UNITS/3 ML VIAL SUBQ SCH ×4 (07:28→19:28)
[2021-06-02] MEDS: allopurinoL 100 MG TABLET PO SCH (09:42)
[2021-06-02] MEDS: Apixaban 5 MG TABLET PO SCH ×2 (09:42→19:28)
[2021-06-02] MEDS: Acetaminophen 325 MG TABLET PO PRN (10:58)
[2021-06-02] MEDS ORDERED: Furosemide 40 MG TABLET PO ONE (14:30)
[2021-06-02] MEDS ORDERED: Furosemide 40 MG TABLET PO SCH (14:30)
[2021-06-02] MEDS: Leptospermum Honey Gel 44 ML TUBE TP SCH (21:01)
[2021-06-03 03:50] LABS: Calcium 9.5 mg/dL (8.6-10.3); Potassium 3.9 mEq/L (3.5-5.1)
[2021-06-03] MEDS: allopurinoL 100 MG TABLET PO SCH (08:11)
[2021-06-03] MEDS: Apixaban 5 MG TABLET PO SCH (08:11)
[2021-06-03] MEDS: Insulin LISPRO 300 UNITS/3 ML VIAL SUBQ SCH ×2 (08:11→12:20)
[2021-06-03] MEDS: Acetaminophen 325 MG TABLET PO PRN (10:29)
[2021-06-03 12:20] VITALS: BP 123/66; PULSE 63; TEMP 98.2; O2SAT 95
== END 2021-06-03 15:20 | disposition home or self-care (01) | DRG 291 ==
LOC: 2ANU → SUATTDRO 17:32
PROVIDERS: ADMIT Internal Medicine; ATTEND Family Medicine

== ENCOUNTER 2021-09-03 13:49 | Inpatient (IN) ==
[2021-09-03 15:38] LABS: Basophils # 0.1 K/mcL (0.0-0.2); Basophils % 0.8 %; Eosinophils # 0.3 K/mcL (0.0-0.6); Eosinophils % 2.7 %; Hemoglobin 9.1 g/dL (11.5-15.4); Immature Granulocytes % 0.2 % (0-4); Lymphocytes # 1.1 K/mcL (0.6-4.6); Lymphocytes % 10.3 %; Mean Corpuscular HGB Conc 30.3 g/dL (31.6-35.5); Mean Corpuscular Hemoglobin 27.7 pg (28.0-33.3); Mean Corpuscular Volume 91.2 fL (83.0-100.0); Mean Platelet Volume 10.2 fL (9.4-12.4); Monocytes # 1.5 K/mcL (0.0-1.3); Monocytes % 13.9 %; Neutrophils # 7.6 K/mcL (1.6-8.9); Platelet Count 289 K/mcL (140-400); Red Blood Count 3.29 M/mcL (3.82-4.97); Red Cell Distribution Width 14.2 % (11.5-14.5); Segmented Neutrophils % 72.1 %; White Blood Count 10.6 K/mcL (4.3-11.1)
[2021-09-03 15:56] LABS: BUN/Creatinine Ratio 16 (6-26); Blood Urea Nitrogen 52 mg/dL (8-23); Carbon Dioxide 28 mEq/L (23-29); Chloride 102 mEq/L (98-107); Glucose 124 mg/dL (70-105); Osmolality,Calculated 305 (280-300); Potassium 4.5 mEq/L (3.5-5.1); Sodium 140 mEq/L (136-145); eGFR For African Americans 16 (> 60); eGFR For Non-African Americans 13 (> 60)
[2021-09-03] MEDS ORDERED: Naloxone 0.4 MG/ML INJ IVP PRN (17:53)
[2021-09-03] MEDS ORDERED: Melatonin 3 MG TABLET PO PRN (17:53)
[2021-09-03] MEDS ORDERED: Perflutren Lipid Microsphere 1.3 ML in 0.9 % Sodium Chloride 8.7 ML IVP PRN (17:58)
[2021-09-03 18:16] LABS: Chol/HDL Ratio 2.1 (0-4.9); Cholesterol 101 mg/dL (< 200); HDL Cholesterol 47 mg/dL (40-59); LDL Cholesterol,Calculated 36 mg/dL (< 100); Magnesium 2.2 mg/dL (1.6-2.6); Phosphorous 5.1 mg/dL (2.7-4.5); Triglycerides 88 mg/dL (< 150)
[2021-09-03 18:17] LABS: Troponin I < 0.03 ng/mL (< 0.04)
[2021-09-03] MEDS ORDERED: D5% in Water 1,000 ML IVC PRN (19:22)
[2021-09-03] MEDS ORDERED: Dextrose Gel 15 GM/37.5 ML TUBE PO PRN ×2 (19:22)
[2021-09-03] MEDS ORDERED: Ipratropium/Albuterol Neb 3 ML IH PRN (19:22)
[2021-09-03] MEDS ORDERED: *HR* Dextrose 50 % in Water (Syg) 50 ML SYRINGE IVP PRN (19:22)
[2021-09-03] MEDS ORDERED: Triamcinolone Acet 0.1% CRM 15 GM TUBE TP PRN (19:34)
[2021-09-03 19:57] LABS: Iron < 10 mcg/dL (50-170); Transferrin 306 mg/dL (203-362)
[2021-09-03 20:13] LABS: Estimated Average Glucose 148 mg/dl; Hemoglobin A1C 6.8 %
[2021-09-03] MEDS: Acetaminophen 325 MG TABLET PO PRN (21:40)
[2021-09-03] MEDS: Apixaban 5 MG TABLET PO SCH (21:41)
[2021-09-03] MEDS ORDERED: *HR* Heparin 5,000 UNIT/ML VIAL SQ SCH (22:00)
[2021-09-03] MEDS: Gabapentin 300 MG CAPSULE PO SCH (23:11)
[2021-09-04] MEDS: Insulin LISPRO 300 UNITS/3 ML VIAL SUBQ SCH ×5 (00:44→20:37)
[2021-09-04 02:15] LABS: Basophils # 0.1 K/mcL (0.0-0.2); Basophils % 0.9 %; Eosinophils # 0.3 K/mcL (0.0-0.6); Eosinophils % 2.7 %; Hemoglobin 8.1 g/dL (11.5-15.4); Immature Granulocytes % 0.3 % (0-4); Lymphocytes # 1.2 K/mcL (0.6-4.6); Mean Corpuscular HGB Conc 31.2 g/dL (31.6-35.5); Mean Corpuscular Hemoglobin 27.8 pg (28.0-33.3); Mean Corpuscular Volume 89.3 fL (83.0-100.0); Mean Platelet Volume 10.6 fL (9.4-12.4); Monocytes # 1.7 K/mcL (0.0-1.3); Monocytes % 15.2 %; Neutrophils # 7.6 K/mcL (1.6-8.9); Platelet Count 288 K/mcL (140-400); Red Blood Count 2.91 M/mcL (3.82-4.97); Red Cell Distribution Width 14.3 % (11.5-14.5); Segmented Neutrophils % 69.9 %; White Blood Count 10.9 K/mcL (4.3-11.1)
[2021-09-04 02:22] LABS: INR 2.5; Prothrombin Time 27.6 Seconds (9.4-12.1)
[2021-09-04 02:25] LABS: Activated Partial Thrombo Time 37.2 Seconds (26.0-36.0)
[2021-09-04 02:39] LABS: Calcium 8.7 mg/dL (8.6-10.3); Potassium 4.3 mEq/L (3.5-5.1)
[2021-09-04 07:14] LABS: Troponin I < 0.03 ng/mL (< 0.04)
[2021-09-04] MEDS: Acetaminophen 325 MG TABLET PO PRN (07:41)
[2021-09-04] MEDS: Cyanocobalamin (B-12) 1,000 MCG TABLET PO SCH (07:41)
[2021-09-04] MEDS: Apixaban 5 MG TABLET PO SCH ×2 (07:41→20:40)
[2021-09-04 09:17] LABS: Ferritin 15 ng/mL (10-120)
[2021-09-04] MEDS: *HR* HYDROcodone/Acet 5/325 mg TABLET PO PRN ×2 (10:41→20:40)
[2021-09-04 12:28] LABS: Hemoglobin 8.5 g/dL (11.5-15.4)
[2021-09-04 18:39] LABS: Sodium, Urine 23.3 mEq/L
[2021-09-04 18:44] LABS: Bacteria,Urine Few per hpf (None-Few); Bilirubin,Urine Negative (Negative); Blood,Urine Negative (Negative); Clarity,Urine Turbid (Clear); Color,Urine Yellow (Yellow); Glucose,Urine (UA) Normal (Normal); Hyaline Casts,Urine Moderate per lpf (None Seen); Ketones,Urine Negative (Negative); Leukocyte Esterase,Urine Negative (Negative); Mucus,Urine Few per lpf (None-Few); Nitrite,Urine Negative (Negative); PH,Urine 5.5 pH Units (5.0-8.0); Protein,Urine 30 mg/dL (Neg-Trace); RBC,Urine 0-3 per hpf (0-3); Specific Gravity,Urine 1.022 (1.010-1.025); Squamous Epithelial Cell,Urine Many per hpf (None-Few)
[2021-09-04] MEDS: Gabapentin 300 MG CAPSULE PO SCH (20:40)
[2021-09-05 01:45] LABS: Basophils # 0.1 K/mcL (0.0-0.2); Eosinophils # 0.4 K/mcL (0.0-0.6); Eosinophils % 3.6 %; Hematocrit 29.3 % (35.3-44.9); Hemoglobin 8.9 g/dL (11.5-15.4); Immature Granulocytes % 0.3 % (0-4); Lymphocytes # 1.1 K/mcL (0.6-4.6); Lymphocytes % 9.8 %; Mean Corpuscular HGB Conc 30.4 g/dL (31.6-35.5); Mean Corpuscular Hemoglobin 27.5 pg (28.0-33.3); Mean Corpuscular Volume 90.4 fL (83.0-100.0); Mean Platelet Volume 10.3 fL (9.4-12.4); Monocytes # 1.6 K/mcL (0.0-1.3); Monocytes % 14.7 %; Neutrophils # 7.8 K/mcL (1.6-8.9); Platelet Count 293 K/mcL (140-400); Red Blood Count 3.24 M/mcL (3.82-4.97); Red Cell Distribution Width 14.6 % (11.5-14.5); Segmented Neutrophils % 70.6 %; White Blood Count 11.1 K/mcL (4.3-11.1)
[2021-09-05 02:05] LABS: Phosphorous 5.4 mg/dL (2.7-4.5)
[2021-09-05] MEDS: Insulin LISPRO 300 UNITS/3 ML VIAL SUBQ SCH ×4 (08:15→21:26)
[2021-09-05] MEDS: *HR* HYDROcodone/Acet 5/325 mg TABLET PO PRN ×2 (08:24→15:22)
[2021-09-05] MEDS: Apixaban 5 MG TABLET PO SCH ×2 (08:24→21:04)
[2021-09-05] MEDS: Cyanocobalamin (B-12) 1,000 MCG TABLET PO SCH (08:25)
[2021-09-05] MEDS: Albumin 25% 25gram/100mL 25 GM/100 ML IV.SOLN IVPB SCH ×2 (15:23→23:58)
[2021-09-05] MEDS: Gabapentin 300 MG CAPSULE PO SCH (21:03)
[2021-09-05] MEDS ORDERED: *HR* Labetalol 20 MG/4 ML SYRINGE IVP ONE (23:21)
[2021-09-06 04:51] LABS: Basophils # 0.1 K/mcL (0.0-0.2); Basophils % 0.9 %; Eosinophils # 0.2 K/mcL (0.0-0.6); Eosinophils % 1.8 %; Hematocrit 28.5 % (35.3-44.9); Hemoglobin 8.6 g/dL (11.5-15.4); Immature Granulocytes % 0.4 % (0-4); Lymphocytes # 1.2 K/mcL (0.6-4.6); Lymphocytes % 9.9 %; Mean Corpuscular HGB Conc 30.2 g/dL (31.6-35.5); Mean Corpuscular Hemoglobin 27.3 pg (28.0-33.3); Mean Corpuscular Volume 90.5 fL (83.0-100.0); Mean Platelet Volume 10.3 fL (9.4-12.4); Monocytes # 1.8 K/mcL (0.0-1.3); Monocytes % 14.6 %; Neutrophils # 8.9 K/mcL (1.6-8.9); Platelet Count 301 K/mcL (140-400); Red Blood Count 3.15 M/mcL (3.82-4.97); Red Cell Distribution Width 14.7 % (11.5-14.5); Segmented Neutrophils % 72.4 %; White Blood Count 12.3 K/mcL (4.3-11.1)
[2021-09-06 05:12] LABS: Calcium 9.4 mg/dL (8.6-10.3); Magnesium 2.3 mg/dL (1.6-2.6); Phosphorous 4.4 mg/dL (2.7-4.5); Potassium 4.8 mEq/L (3.5-5.1)
[2021-09-06] MEDS: Insulin LISPRO 300 UNITS/3 ML VIAL SUBQ SCH ×2 (08:27→12:02)
[2021-09-06] MEDS: Albumin 25% 25gram/100mL 25 GM/100 ML IV.SOLN IVPB SCH (08:38)
[2021-09-06] MEDS: Apixaban 5 MG TABLET PO SCH (08:39)
[2021-09-06] MEDS: Cyanocobalamin (B-12) 1,000 MCG TABLET PO SCH (08:39)
[2021-09-06 12:06] VITALS: BP 142/82; PULSE 72; TEMP 97.8; O2SAT 94
[2021-09-06] MEDS ORDERED: Furosemide 40 MG TABLET PO SCH (13:45)
== END 2021-09-06 15:05 | disposition home or self-care (01) | DRG 683 ==
LOC: EMEROOARM 13:49 → 3ANU 13:49 → SUATTDRO 18:31 → 3ANU 19:58
PROVIDERS: ADMIT Internal Medicine; ATTEND Internal Medicine

== ENCOUNTER 2021-11-15 14:38 | Inpatient (IN) ==
[2021-11-15] MEDS ORDERED: Naloxone 0.4 MG/ML INJ IVP PRN (17:38)
[2021-11-15] MEDS ORDERED: Ondansetron 4 MG/2 ML VIAL IVP PRN (17:38)
[2021-11-15] MEDS ORDERED: cefTRIAXone 1,000 MG in 0.9 % Sodium Chloride Mini Bag 100 ML IVPB ONE (18:13)
[2021-11-15] MEDS ORDERED: *HR* Dextrose 50 % in Water (Syg) 50 ML SYRINGE IVP PRN (18:14)
[2021-11-15] MEDS ORDERED: Dextrose Gel 15 GM/37.5 ML TUBE PO PRN ×2 (18:14)
[2021-11-15] MEDS ORDERED: D5% in Water 1,000 ML IVC PRN (18:14)
[2021-11-15] MEDS ORDERED: cefTRIAXone 2,000 MG in 0.9 % Sodium Chloride Mini Bag 100 ML IVPB SCH (19:00)
[2021-11-15] MEDS: Insulin LISPRO 300 UNITS/3 ML VIAL SUBQ SCH (21:25)
[2021-11-16 03:36] LABS: Eosinophils % 0.1 %
[2021-11-16 03:38] LABS: Basophils # 0.1 K/mcL (0.0-0.2); Basophils % 0.4 %; Hemoglobin 8.2 g/dL (11.5-15.4); Immature Granulocytes % 0.6 % (0-4); Lymphocytes # 0.8 K/mcL (0.6-4.6); Lymphocytes % 2.6 %; Mean Corpuscular HGB Conc 30.4 g/dL (31.6-35.5); Mean Corpuscular Hemoglobin 26.8 pg (28.0-33.3); Mean Corpuscular Volume 88.2 fL (83.0-100.0); Platelet Count 309 K/mcL (140-400); Red Blood Count 3.06 M/mcL (3.82-4.97); Red Cell Distribution Width 18.2 % (11.5-14.5); Segmented Neutrophils % 89.3 %; White Blood Count 29.2 K/mcL (4.3-11.1)
[2021-11-16 03:42] LABS: Neutrophils # 26.1 K/mcL (1.6-8.9)
[2021-11-16 03:44] LABS: INR 1.9; Prothrombin Time 20.6 Seconds (9.4-12.1)
[2021-11-16 04:01] LABS: Albumin 3.4 g/dL (3.5-5.7); Bilirubin,Direct 0.8 mg/dL (0.0-0.2); Bilirubin,Indirect 0.7 mg/dL (0.0-1.0); Bilirubin,Total 1.5 mg/dL (0.3-1.0); Globulin 3.5 g/dL (2.4-3.5); Total Protein 6.9 g/dL (6.4-8.9)
[2021-11-16 04:02] LABS: Calcium 8.9 mg/dL (8.6-10.3); Magnesium 2.2 mg/dL (1.6-2.6); Potassium 4.5 mEq/L (3.5-5.1)
[2021-11-16 06:16] LABS: Hepatitis B Surface Antigen Nonreactive (Nonreactive)
[2021-11-16 06:45] LABS: Hepatitis C Virus Antibody Nonreactive (Nonreactive)
[2021-11-16 06:46] LABS: Hepatitis B Core IgM Nonreactive (Nonreactive)
[2021-11-16] MEDS ORDERED: Furosemide 40 MG/4 ML VIAL IVP SCH (09:00)
[2021-11-16] MEDS: Insulin LISPRO 300 UNITS/3 ML VIAL SUBQ SCH ×4 (09:44→20:30)
[2021-11-16] MEDS ORDERED: Simethicone 80 MG TAB.CHEW PO PRN (11:20)
[2021-11-16 11:55] LABS: Hepatitis A Antibody IgM Nonreactive (Nonreactive)
[2021-11-16 12:07] LABS: RBC,Peritoneal Fluid < 2000 RBC/mcL
[2021-11-16] MEDS: Albumin 25% 25gram/100mL 25 GM/100 ML IV.SOLN IVPB SCH ×2 (13:21→20:29)
[2021-11-16 14:42] LABS: Appearance of Peritoneal Fl CLEAR (Clear)
[2021-11-16] MEDS: Cefepime HCl 2,000 MG in 0.9 % Sodium Chloride Mini Bag 100 ML IVPB SCH (15:48)
[2021-11-16] MEDS: Furosemide 40 MG/4 ML VIAL IVP SCH (20:29)
[2021-11-16] MEDS: Lactulose Oral Soln 20 GM/30 ML UDC PO SCH (20:30)
[2021-11-17] MEDS: Albumin 25% 25gram/100mL 25 GM/100 ML IV.SOLN IVPB SCH ×3 (04:12→19:59)
[2021-11-17 05:13] LABS: Basophils # 0.1 K/mcL (0.0-0.2); Basophils % 0.6 %; Eosinophils # 0.2 K/mcL (0.0-0.6); Eosinophils % 1.2 %; Hematocrit 27.6 % (35.3-44.9); Hemoglobin 8.3 g/dL (11.5-15.4); Immature Granulocytes % 0.5 % (0-4); Lymphocytes # 0.8 K/mcL (0.6-4.6); Lymphocytes % 4.8 %; Mean Corpuscular HGB Conc 30.1 g/dL (31.6-35.5); Mean Corpuscular Hemoglobin 26.3 pg (28.0-33.3); Mean Corpuscular Volume 87.3 fL (83.0-100.0); Mean Platelet Volume 10.3 fL (9.4-12.4); Monocytes # 1.8 K/mcL (0.0-1.3); Monocytes % 11.3 %; Neutrophils # 13.3 K/mcL (1.6-8.9); Platelet Count 312 K/mcL (140-400); Red Blood Count 3.16 M/mcL (3.82-4.97); Red Cell Distribution Width 18.3 % (11.5-14.5); Segmented Neutrophils % 81.6 %; White Blood Count 16.3 K/mcL (4.3-11.1)
[2021-11-17 05:27] LABS: Albumin 3.8 g/dL (3.5-5.7); Albumin/Globulin Ratio 1.1 (1.1-2.2); Bilirubin,Direct 0.9 mg/dL (0.0-0.2); Bilirubin,Indirect 0.7 mg/dL (0.0-1.0); Bilirubin,Total 1.6 mg/dL (0.3-1.0); Calcium 9.4 mg/dL (8.6-10.3); Globulin 3.4 g/dL (2.4-3.5); Potassium 4.1 mEq/L (3.5-5.1); Total Protein 7.2 g/dL (6.4-8.9)
[2021-11-17] MEDS: Insulin LISPRO 300 UNITS/3 ML VIAL SUBQ SCH ×4 (08:54→20:26)
[2021-11-17] MEDS: Cefepime HCl 2,000 MG in 0.9 % Sodium Chloride Mini Bag 100 ML IVPB SCH (09:21)
[2021-11-17] MEDS: Furosemide 40 MG/4 ML VIAL IVP SCH ×2 (09:22→19:59)
[2021-11-17] MEDS: Lactulose Oral Soln 20 GM/30 ML UDC PO SCH ×2 (09:35→19:35)
[2021-11-17 13:48] LABS: ABG Base Excess 1 mEq/L (-2 to 3); ABG HCO3 26 mEq/L (21-27); ABG Oxygen Saturation 95 % (95-98); ABG PCO2 39 mmHg (35-45); ABG PH 7.43 pH Units (7.32-7.45); ABG PO2 71 mmHg (85-104); ABG TCO2 27 mEq/L (20-26)
[2021-11-17] MEDS ORDERED: allopurinoL 100 MG TABLET PO PRN (13:52)
[2021-11-17] MEDS: Apixaban 5 MG TABLET PO SCH (19:58)
[2021-11-17 22:22] LABS: Fluid Source for Albumin PERITONEAL FL
[2021-11-18 01:50] LABS: Prothrombin Time 21.7 Seconds (9.4-12.1)
[2021-11-18] MEDS: Lactulose Oral Soln 20 GM/30 ML UDC PO SCH ×2 (07:27→21:20)
[2021-11-18] MEDS: Insulin LISPRO 300 UNITS/3 ML VIAL SUBQ SCH ×4 (07:58→21:34)
[2021-11-18] MEDS: Albumin 25% 25gram/100mL 25 GM/100 ML IV.SOLN IVPB SCH ×2 (07:59→21:19)
[2021-11-18] MEDS: Apixaban 5 MG TABLET PO SCH ×3 (09:09→21:19)
[2021-11-18] MEDS: Furosemide 40 MG/4 ML VIAL IVP SCH ×2 (09:13→21:19)
[2021-11-18] MEDS: Cefepime HCl 2,000 MG in 0.9 % Sodium Chloride 10 ML IVP SCH (09:13)
[2021-11-18 10:42] LABS: Basophils # 0.1 K/mcL (0.0-0.2); Basophils % 0.7 %; Eosinophils # 0.3 K/mcL (0.0-0.6); Eosinophils % 2.4 %; Hematocrit 28.5 % (35.3-44.9); Hemoglobin 8.5 g/dL (11.5-15.4); Immature Granulocytes % 0.6 % (0-4); Lymphocytes # 0.8 K/mcL (0.6-4.6); Lymphocytes % 6.1 %; Mean Corpuscular HGB Conc 29.8 g/dL (31.6-35.5); Mean Corpuscular Hemoglobin 26.4 pg (28.0-33.3); Mean Corpuscular Volume 88.5 fL (83.0-100.0); Mean Platelet Volume 10.2 fL (9.4-12.4); Monocytes # 1.6 K/mcL (0.0-1.3); Monocytes % 12.2 %; Neutrophils # 10.5 K/mcL (1.6-8.9); Platelet Count 315 K/mcL (140-400); Red Blood Count 3.22 M/mcL (3.82-4.97); Red Cell Distribution Width 18.2 % (11.5-14.5); White Blood Count 13.5 K/mcL (4.3-11.1)
[2021-11-18 10:59] LABS: Albumin 4.1 g/dL (3.5-5.7); Albumin/Globulin Ratio 1.6 (1.1-2.2); Bilirubin,Indirect 0.5 mg/dL (0.0-1.0); Bilirubin,Total 1.5 mg/dL (0.3-1.0); Calcium 9.1 mg/dL (8.6-10.3); Globulin 2.6 g/dL (2.4-3.5); Potassium 3.9 mEq/L (3.5-5.1); Total Protein 6.7 g/dL (6.4-8.9)
[2021-11-18] MEDS ORDERED: Acetaminophen 325 MG TABLET PO ONE (11:47)
[2021-11-18] MEDS: Cefepime HCl 2,000 MG in 0.9 % Sodium Chloride Mini Bag 100 ML IVPB SCH (20:26)
[2021-11-19 05:38] LABS: Basophils # 0.1 K/mcL (0.0-0.2); Basophils % 0.7 %; Eosinophils # 0.3 K/mcL (0.0-0.6); Eosinophils % 1.6 %; Hematocrit 27.9 % (35.3-44.9); Hemoglobin 8.5 g/dL (11.5-15.4); Immature Granulocytes % 0.8 % (0-4); Lymphocytes # 0.8 K/mcL (0.6-4.6); Lymphocytes % 4.6 %; Mean Corpuscular HGB Conc 30.5 g/dL (31.6-35.5); Mean Corpuscular Hemoglobin 26.6 pg (28.0-33.3); Mean Corpuscular Volume 87.5 fL (83.0-100.0); Monocytes # 2.5 K/mcL (0.0-1.3); Monocytes % 14.3 %; Neutrophils # 13.5 K/mcL (1.6-8.9); Nucleated Red Blood Cells 0.2 /100 WBC (0); Platelet Count 327 K/mcL (140-400); Red Blood Count 3.19 M/mcL (3.82-4.97); Red Cell Distribution Width 18.4 % (11.5-14.5); White Blood Count 17.4 K/mcL (4.3-11.1)
[2021-11-19 05:50] LABS: Albumin 4.1 g/dL (3.5-5.7); Albumin/Globulin Ratio 1.5 (1.1-2.2); Bilirubin,Direct 0.7 mg/dL (0.0-0.2); Bilirubin,Indirect 0.6 mg/dL (0.0-1.0); Bilirubin,Total 1.3 mg/dL (0.3-1.0); Calcium 9.1 mg/dL (8.6-10.3); Globulin 2.7 g/dL (2.4-3.5); Potassium 4.1 mEq/L (3.5-5.1); Total Protein 6.8 g/dL (6.4-8.9)
[2021-11-19] MEDS: Lactulose Oral Soln 20 GM/30 ML UDC PO SCH ×2 (09:23→21:40)
[2021-11-19] MEDS: Albumin 25% 25gram/100mL 25 GM/100 ML IV.SOLN IVPB SCH ×2 (09:23→21:37)
[2021-11-19] MEDS: Apixaban 5 MG TABLET PO SCH ×2 (09:28→21:39)
[2021-11-19] MEDS: Cefepime HCl 2,000 MG in 0.9 % Sodium Chloride 10 ML IVP SCH (09:29)
[2021-11-19] MEDS: Furosemide 40 MG/4 ML VIAL IVP SCH ×2 (09:29→21:37)
[2021-11-19] MEDS: Insulin LISPRO 300 UNITS/3 ML VIAL SUBQ SCH ×4 (09:30→21:40)
[2021-11-19] MEDS ORDERED: Acetaminophen 325 MG TABLET PO ONE (09:36)
[2021-11-19] MEDS: NIFEdipine XL (24 HR) 30 MG TAB.ER.24 PO SCH (14:52)
[2021-11-20 03:54] VITALS: TEMP 97.7
[2021-11-20] MEDS: NIFEdipine XL (24 HR) 30 MG TAB.ER.24 PO SCH (07:39)
[2021-11-20] MEDS: Apixaban 5 MG TABLET PO SCH (07:43)
[2021-11-20] MEDS: Insulin LISPRO 300 UNITS/3 ML VIAL SUBQ SCH ×2 (07:45→11:44)
[2021-11-20] MEDS ORDERED: Furosemide 40 MG TABLET PO SCH (08:00)
[2021-11-20] MEDS: Albumin 25% 25gram/100mL 25 GM/100 ML IV.SOLN IVPB SCH (09:35)
[2021-11-20] MEDS: Cefepime HCl 2,000 MG in 0.9 % Sodium Chloride 10 ML IVP SCH (09:41)
[2021-11-20 09:43] LABS: Basophils # 0.2 K/mcL (0.0-0.2); Basophils % 0.7 %; Eosinophils # 0.5 K/mcL (0.0-0.6); Eosinophils % 2.2 %; Hematocrit 29.3 % (35.3-44.9); Hemoglobin 8.9 g/dL (11.5-15.4); Immature Granulocytes % 1.4 % (0-4); Lymphocytes # 0.9 K/mcL (0.6-4.6); Lymphocytes % 4.4 %; Mean Corpuscular HGB Conc 30.4 g/dL (31.6-35.5); Mean Corpuscular Hemoglobin 26.5 pg (28.0-33.3); Mean Corpuscular Volume 87.2 fL (83.0-100.0); Mean Platelet Volume 10.2 fL (9.4-12.4); Monocytes # 2.4 K/mcL (0.0-1.3); Monocytes % 11.9 %; Neutrophils # 16.1 K/mcL (1.6-8.9); Nucleated Red Blood Cells 0.2 /100 WBC (0); Platelet Count 395 K/mcL (140-400); Red Blood Count 3.36 M/mcL (3.82-4.97); Red Cell Distribution Width 18.8 % (11.5-14.5); Segmented Neutrophils % 79.4 %; White Blood Count 20.3 K/mcL (4.3-11.1)
[2021-11-20 10:01] LABS: Albumin 4.1 g/dL (3.5-5.7); Albumin/Globulin Ratio 1.6 (1.1-2.2); Bilirubin,Direct 0.8 mg/dL (0.0-0.2); Bilirubin,Indirect 0.7 mg/dL (0.0-1.0); Bilirubin,Total 1.5 mg/dL (0.3-1.0); Calcium 9.4 mg/dL (8.6-10.3); Globulin 2.6 g/dL (2.4-3.5); Total Protein 6.7 g/dL (6.4-8.9)
[2021-11-20 10:14] VITALS: BP 125/67; PULSE 59; O2SAT 99
[2021-11-20] MEDS: Lactulose Oral Soln 20 GM/30 ML UDC PO SCH (10:26)
== END 2021-11-20 13:13 | disposition home health service (06) | DRG 432 ==
LOC: 2NNU → SUATTDRO 11-16 10:54 → 2ANU 11-18 14:05
PROVIDERS: ADMIT Internal Medicine; ATTEND Family Medicine